=== PATIENT | male | born 1975 | race Caucasian/White ===

== ENCOUNTER 2019-06-23 09:36 | Emergency (ER) | payer SELFPAY ==
[~2019-06-23] VITALS: Ht 185.4 cm; Wt 104.3 kg
--- NOTE | 2019-06-23 09:38 | NUR ---
PT SUBHA FROM A REHAB FACILITY C/O GENERALIZED WEAKNESS, DIZZINESS X TODAY. PER EMS BLOOD SUGAR IS READING HIGH. HX OF HYPERTENSION AND DIABETES. PLACED ON MONITOR. AWAITING MD MONROE.
--- NOTE | 2019-06-23 09:46 | NUR ---
DR WAYNE AT [facility] FOR EVAL.
[2019-06-23] MEDS: IV NS 0.9% 1,000 ML BAG IV ONE (09:56)
[2019-06-23 10:20] LABS: CALCIUM, SERUM 8.8 mg/dL (8.5-10.1); CARBON DIOXIDE 25 mmol/L (21-32); CHLORIDE 101 mmol/L (98-107); CREATININE 0.9 mg/dL (0.6-1.3); MAGNESIUM 1.9 mg/dL (1.8-2.4); PHOSPHORUS 3.2 mg/dL (2.5-4.9); POTASSIUM 4.1 mmol/L (3.5-5.1); SODIUM SERUM 133 mmol/L (136-145); UREA NITROGEN, BLOOD 15 mg/dL (7-18)
[2019-06-23 10:21] LABS: GLUCOSE 378 mg/dL (74-106)
[2019-06-23] MEDS ORDERED: INSULIN REGULAR, HUMAN 100 UNIT/ML 10 ML VIAL ONE (11:08)
[2019-06-23] MEDS: INSULIN REGULAR, HUMAN 100 UNIT/ML 10 ML VIAL SQ ONE (11:10)
[2019-06-23 11:37] LABS: APPEARANCE,URINE Clear (CLEAR); BILIRUBIN,URINE Negative (NEGATIVE); BLOOD, URINE Negative Ery/uL (NEGATIVE); COLOR,URINE Yellow (YELLOW); KETONES,URINE Negative (NEGATIVE); LEUKOCYTE ESTERASE ,URINE Negative (NEGATIVE); NITRITE, URINE Negative (NEGATIVE); PH,URINE 5.5 (5.0-8.0); PROTEIN,URINE Negative (NEGATIVE); UGLUCOSE 500 MG/DL mg/dL (NEGATIVE); UROBILINOGEN,URINE 0.2 EU/dL (0.2)
[2019-06-23 11:38] VITALS: BP 165/99
--- NOTE | 2019-06-23 11:38 | NUR ---
Patient discharged to home in stable condition. Written and verbal after care instructions given. Patient verbalizes understanding of instruction.IV removed. Catheter intact and site benign. Pressure and 4x4 applied to site. No bleeding noted.
== END 2019-06-23 11:39 | disposition home or self-care (01) ==
LOC: ER 09:37
DX: E11.65 Type 2 diabetes mellitus with hyperglycemia (principal); R55 Syncope and collapse; I10 Essential (primary) hypertension; Z88.8 Allergy status to other drugs, medicaments and biological substances
CPT/HCPCS: 36415; 80048; 81001; 82010; 82962 ×2; 83735; 84100; 93005; 96360; 96372; 99284; J1815; J7030; 81000-TC